=== PATIENT | female | born 1975 | race Two or more races ===

== ENCOUNTER 2016-07-22 16:35 | Inpatient (IN) | payer OTHER ==
[~2016-07-22] VITALS: Ht 162.6 cm; Wt 103.4 kg
[2016-07-22 18:44] VITALS: BP 148/95; PULSE 115; RESP 18; TEMP 98
[2016-07-22] MEDS ORDERED: BENZTROPINE MESYLATE 1 MG TAB PO PRN (19:00)
[2016-07-22] MEDS ORDERED: MAGNESIUM HYDROXIDE SUSP 30 ML CUP PO PRN (19:00)
[2016-07-22] MEDS ORDERED: LORazepam 1 MG TAB PO PRN (19:00)
[2016-07-22] MEDS ORDERED: LORazepam 2 MG/ML VIAL IM PRN (19:00)
[2016-07-22] MEDS ORDERED: BENZTROPINE MESYLATE 2 MG/2 ML VIAL IM PRN (19:00)
[2016-07-22] MEDS ORDERED: ACETAMINOPHEN 325 MG TAB PO PRN (19:00)
[2016-07-22] MEDS ORDERED: ALUMINUM/MAGNESIUM/SIMETH 30 ML CUP PO PRN (19:00)
[2016-07-22] MEDS ORDERED: diphenhydrAMINE HCL 50 MG CAP - HS PRN PO (19:00)
[2016-07-22] MEDS ORDERED: REMOVE OLD NICOTINE PATCH T-DERMAL SCH (21:00)
[2016-07-23 05:56] VITALS: BP 113/67; PULSE 100; RESP 16; TEMP 97.1; O2SAT 98
[2016-07-23] MEDS ORDERED: NICOTINE 21 MG/24 HR PATCH T-DERMAL SCH (09:00)
[2016-07-23 09:13] LABS: AUTOMATED NEUTROPHIL # 6.2 TH/MM3 (1.8-7.7); BASOPHIL # 0.1 TH/MM3 (0-0.2); BASOPHIL % 0.6 % (0.0-2.0); EOSINOPHIL # 0.2 TH/MM3 (0-0.4); EOSINOPHIL % 2.1 % (0.0-4.0); HEMATOCRIT 31.1 % (35.0-46.0); HEMO FLAGS DIFF FINAL; LYMPH % 34.2 % (9.0-44.0); LYMPHOCYTE # 3.7 TH/MM3 (1.0-4.8); MEAN CELL VOLUME 83.5 FL (80.0-100.0); MEAN CORPUSCULAR HEMOGLOBIN 28.6 PG (27.0-34.0); MEAN CORPUSCULAR HGB CONC 34.3 % (32.0-36.0); MONO % 6.4 % (0.0-8.0); NEUT % 56.7 % (16.0-70.0); PLATELET COUNT 530 TH/MM3 (150-450); RED BLOOD COUNT 3.73 MIL/MM3 (4.00-5.30); RED CELL DISTRIBUTION WIDTH 14.7 % (11.6-17.2); WHITE BLOOD COUNT 10.9 TH/MM3 (4.0-11.0)
[2016-07-23 09:50] LABS: ALKALINE PHOSPHATASE 81 U/L (45-117); ALT (GPT) 29 U/L (10-53); ANION GAP 7 MEQ/L (5-15); AST (GOT) 18 U/L (15-37); BICARBONATE 22.9 MEQ/L (21.0-32.0); BLOOD UREA NITROGEN 14 MG/DL (7-18); CHLORIDE 108 MEQ/L (98-107); GLOMERULAR FILTRATION RATE 83 ML/MIN (>89); HDL CHOLESTEROL 75.7 MG/DL (40.0-60.0); LDL CHOLESTEROL 64 MG/DL (0-99); POTASSIUM 3.9 MEQ/L (3.5-5.1); SODIUM (NA) 138 MEQ/L (136-145); TOTAL BILIRUBIN ADULT 0.4 MG/DL (0.2-1.0)
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
[2016-07-23 11:45] LABS: HEMOGLOBIN A1a 0.9 %; HEMOGLOBIN A1b 0.8 %; HEMOGLOBIN Ao 86.1 %; HEMOGLOBIN LA1C 1.9 %; HEMOGLOBIN P3 3.6 %
[2016-07-23] MEDS ORDERED: diphenhydrAMINE HCL 25 MG CAP PO PRN (13:00)
== END 2016-07-23 15:50 | disposition home or self-care (01) | DRG 882 ==
LOC: H270 16:35
PROVIDERS: ADMIT Psychiatry & Neurology Psychiatry; ATTEND Psychiatry & Neurology Psychiatry
DX: F43.20 Adjustment disorder, unspecified (principal); F32.9 Major depressive disorder, single episode, unspecified; F41.9 Anxiety disorder, unspecified; F12.90 Cannabis use, unspecified, uncomplicated; Z87.820 Personal history of traumatic brain injury; Z81.8 Family history of other mental and behavioral disorders
CPT/HCPCS: 80053; 80061; 83036; 84443; 85025; Q0163